=== PATIENT | female | born 1975 | race African-American/Black ===

== ENCOUNTER 2018-03-09 01:52 | Emergency (ER) | payer SELFPAY ==
[~2018-03-09] VITALS: Ht 167.6 cm; Wt 84.8 kg
[2018-03-09 02:01] VITALS: Ht 167.6 cm; Wt 84.8 kg
[2018-03-09 04:50] VITALS: BP 129/70
== END 2018-03-09 04:50 | disposition home or self-care (01) ==
LOC: ED 01:52
DX: R10.13 Epigastric pain (principal); R10.30 Lower abdominal pain, unspecified; E03.9 Hypothyroidism, unspecified